=== PATIENT | female | born 1960 | race Caucasian/White ===

== ENCOUNTER 2017-11-17 09:24 | Day surgery (SDC) | payer OTHER ==
[2017-11-09 08:26] VITALS: BMI 27.4
[2017-11-17] MEDS ORDERED: LIDOCAINE HCL 2% (20ML MULTI-DOSE VIAL) NR ONE (11:42)
[2017-11-17] MEDS ORDERED: MIDAZOLAM HCL 2 MG/2 ML SINGLE DOSE VIAL ONE (11:48)
[2017-11-17] MEDS ORDERED: BUPIVACAINE HCL 0.25% 125 MG/50 ML VIAL ONE (11:58)
[2017-11-17] MEDS ORDERED: DEXAMETHASONE SOD PHOSPHATE 4 MG/1 ML VIAL ONE (12:21)
[2017-11-17] MEDS ORDERED: ONDANSETRON 4 MG/2 ML VIAL ONE (12:21)
[2017-11-17] MEDS ORDERED: ceFAZolin SODIUM 1 GM VIAL ONE (12:21)
[2017-11-17] MEDS ORDERED: SODIUM CHLORIDE 0.9% P/F 10 ML VIAL IJ ONE (12:21)
[2017-11-17] MEDS ORDERED: KETOROLAC TROMETHAMINE 30 MG/1 ML VIAL ONE (12:21)
[2017-11-17] MEDS ORDERED: BUPIVACAINE HCL/PF 0.25% (2.5MG/ML) 10 ML VIAL IM ONE (13:05)
[2017-11-17] MEDS ORDERED: ACETAMINOPHEN 325 MG TABLET (FP) PO PRN (13:17)
[2017-11-17] MEDS ORDERED: ONDANSETRON 4 MG/2 ML VIAL IVPUSH PRN (13:17)
[2017-11-17] MEDS ORDERED: oxyCODONE HCL 5 MG TABLET PO PRN ×2 (13:17)
[2017-11-17] MEDS ORDERED: LACTATED RINGERS SOLUTION 1,000 ML IV SCH (13:30)
[2017-11-17] MEDS ORDERED: HYDROmorphone HCL 2 MG TABLET PO PRN (13:55)
[2017-11-17 14:11] VITALS: TEMP 97.6
[2017-11-17 14:38] VITALS: BP 117/68; PULSE 80
--- NOTE | 2017-11-22 17:08 | OP ---
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 OPERATIVE PROCEDURES: 1. Left small finger proximal interphalangeal joint capsulectomy and contracture release. 2. Left small finger open reduction and internal fixation of proximal interphalangeal joint dislocation. SURGEON: Barney Emery MD ANESTHESIA: General. COMPLICATIONS: None. ESTIMATED BLOOD LOSS: Minimal. INDICATIONS FOR PROCEDURE: The patient is a 57-year-old female, with the above findings, indicated for operative treatment. Risks, benefits, alternatives were discussed with the patient at length, proper informed consent was obtained. PROCEDURE: After proper identification of patient and correct operative site, patient was brought to the operating room, placed supine on operating table, prominences well padded. The left upper extremity was prepped and draped in the usual sterile fashion. A well-padded tourniquet was placed over the sterile prep. While under anesthesia, the joint was attempted to be reduced; however, it was not possible. Therefore, the tourniquet was inflated and a Eugene incision was made on the volar aspect of the left small finger PIP joint. Incision was taken sharply through the skin with blunt and sharp dissection to subcutaneous tissues. The A3 manuela was divided and the flexor tendons were retracted. Volar plate was found to be ruptured. The joint was completely dislocated. Severe contracture and hypertrophy of the collateral ligaments was noted. Extensive resection of the collateral ligaments as well as the dorsal capsule and volar soft tissues was necessary to allow for reduction of the joint. Once the joint was able to reduce, the articular surface was identified and some chondromalacia was found. The volar one-quarter of the proximal phalanx articular surface was also completely eroded. Once the joint was reduced, it was able to be stabilized in flexion at about 45 degrees and a dorsal blocking pin was placed. X-rays were taken in multiple planes to confirm reduction of the joint. The wound was irrigated with saline and repaired using a 5-0 fast absorbing plain gut as well as Dermabond. Sterile dressings were placed. Splint was placed. The patient was reversed from anesthesia and brought to the recovery room in stable condition. She tolerated the procedure well. [place] [id number]
== END 2017-11-17 14:35 | disposition home or self-care (01) ==
LOC: FASU 09:24
PROVIDERS: ATTEND Orthopaedic Surgery Hand Surgery
PROC: 0RSX04Z Reposition Left Finger Phalangeal Joint with Internal Fixation Device, Open Approach (ICD-10-PCS; 2017-11-17)
PROC: 0RNX0ZZ Release Left Finger Phalangeal Joint, Open Approach (ICD-10-PCS; principal; 2017-11-17 12:10)
DX: M24.445 Recurrent dislocation, left finger (principal); M24.542 Contracture, left hand; M24.242 Disorder of ligament, left hand; M94.242 Chondromalacia, joints of left hand
CPT/HCPCS: 73140-TC-LT-FY; 94760